=== PATIENT | female | born 1975 | race Two or more races ===

== ENCOUNTER 2017-06-21 20:02 | Inpatient (IN) | payer MEDICARE, OTHER ==
[~2017-06-21] VITALS: Ht 160 cm; Wt 151.9 kg
[~2017-06-21 20:02] MED LIST: ADVAIR 100-501 EACH INH; ALBUTEROL2.5 MG/3 M INH; GLIPIZIDE XL10 MG PO; HYDROCHLOROTHIA25 MG PO; IPRAT-ALBUT 0.5-3 ML INH; METFORMIN HCL1000 MG PO; METFORMIN HCL500 MG PO; PAXIL20 MG PO; PROMETHAZINE HC25 M1 PO; SIMVASTATIN10 MG PO; SINGULAIR5 MG PO; SPIRIVA18 MCG INH; SUPRENZA ODT30 MG PO; VENTOLIN HFA18 GM INH
--- NOTE | 2017-06-22 00:10 | NUR ---
PT ARRIVES TO CCU ROOM 127 ADMITTED WITH SEVERE SEPSIS/PNEUMONIA. ON 4L/NC/O2 WITH SPO2 95%. RESP LABORED, PT DIAPHORETIC, C/O LEFT SIDED CHEST PAIN ASSOCIATED WITH COUGHING, WILL GIVEN PRN PAIN MED. TRANSFERRED OVER TO BED FROM [facility] WITH SLIDER. ALERT AND ORIENTED, DENIES NEEDS AT THIS TIME. WILL START LR BOLUSES ORDERED BY DR PAN. PT ALSO RECEIVED ABX DOSES IN THE ER.
--- NOTE | 2017-06-22 00:45 | NUR ---
BLUM CATHETER PLACED, DIFFICULT PLACEMENT DUE TO DIFFICULTY VISUALIZING MEATUS, REQUIRED THREE STAFF. RETURN OF 250ML DARK JENNIFER URINE, WILL START MONITORING URINE OUTPUT HOURLY. BLOOD SUGAR 347, 10 UNITS OF NOVOLOG GIVEN. WHEN TOLD WHAT HER BLOOD SUGAR WAS PT STATES "IS THAT GOOD OR BAD?", EDUCATION ON BLOOD SUGARS GIVEN BUT REINFORCEMENT NEEDED.
--- NOTE | 2017-06-22 02:00 | NUR ---
150ML URINE OUT SINCE BLUM PLACED ABOUT AN HOUR AND A HALF AGO, URINE DARK JENNIFER. WILL CONTINUE TO MONITOR. STILL RECEIVING LR BOLUSES. PT IN BED TRYING TO SLEEP.
--- NOTE | 2017-06-22 03:02 | NUR ---
URINE OUTPUT 34ML LAST HOUR, THIRD BOLUS OF LR STARTING TO INFUSE NOW, WILL CONTINUE TO MONITOR. PT AWAKE IN BED, STATES SHE IS COMFORTABLE NOW AND ONLY HAS PAIN WITH COUGHING. SITTING UP AWAKE TALKING WITH BROTHER AT BEDSIDE.
--- NOTE | 2017-06-22 04:05 | NUR ---
PT HAS BEEN TRYING TO SLEEP, HAS NOT BEEN HAVING ANY DROPS IN SPO2 BUT ASKS IF SHE CAN WEAR BIPAP "CAN I HAVE THAT MACHINE? EVERY TIME I START TO DRIFT OFF TO SLEEP I SHAKE AWAKE WITH FEELING LIKE I CANT BREATHE." RT NOTIFIED, WILL COME AND SET PT UP ON CPAP. URINE OUTPUT 36ML THIS HOUR, 3 OF 3 LR BOLUSES JUST FINISHED INFUSING.
--- NOTE | 2017-06-22 04:15 | NUR ---
DR PAN NOTIFIED OF LOW URINE OUTPUT, ORDER GIVEN FOR FOURTH LR BOLUS.
--- NOTE | 2017-06-22 04:49 | NUR ---
RT IN TO SET UP CPAP 30% OXYGEN.
--- NOTE | 2017-06-22 05:12 | NUR ---
URINE OUTPUT UP TO 70ML FOR THE LAST HOUR, LR BOLUS JUST COMPLETED AND URINE IS LOOKING LESS DARK. PT RESTING WITH CPAP ON, SPO2 98% AND RR DOWN TO 18.
--- NOTE | 2017-06-22 05:21 | NUR ---
LAB IN TO DRAW
--- NOTE | 2017-06-22 06:35 | NUR ---
PT WANTS BREAK FROM CPAP. HELPED TO POSITION UP IN BED, VERY LABORED RESP WITH EXERTION. REQUESTS NEB TX, RT NOTIFIED, SPO2 91% WHILE MOVING, UP TO 94% AFTER RECOVERING ABOUT TEN MINUTES, OXYGEN 3L/NC IN PLACE. URINE OUTPUT WAS DOWN TO 35 LAST HOUR, WILL NOTIFY DR PAN.
--- NOTE | 2017-06-22 06:42 | NUR ---
DR PAN NOTIFIED OF URINE OUTPUT 35ML LAST HOUR, PT HAS RECEIVED A TOTAL OF 5L IVF SINCE ARRIVAL TO HOSPITAL. ORDER GIVEN TO START LR AT 250ML/HR. RT IN TO START NEB TX PER PT REQUEST.
[2017-06-22] MEDS ORDERED: FLUTICASONE PRO16 GM NAS (08:20)
[2017-06-22] MEDS ORDERED: GLIPIZIDE XL5 MG PO (08:21)
[2017-06-22] MEDS ORDERED: MONTELUKAST SOD10 MG PO (08:21)
[2017-06-22] MEDS ORDERED: PAROXETINE HCL40 MG PO (08:22)
[2017-06-22] MEDS ORDERED: ATROVENT HFA12.9 GM INH (08:22)
[2017-06-22] MEDS ORDERED: ADVIL200 MG PO (10:12)
[2017-06-22] MEDS ORDERED: DAILY MULTIPLE1 EACH PO (10:13)
--- NOTE | 2017-06-22 10:14 | NUR ---
MED REC COMPLETE
--- NOTE | 2017-06-22 11:06 | NUR ---
PT CURRENTLY RESTING WITH EYES CLOSED, DOING WELL.
--- NOTE | 2017-06-22 14:39 | NUR ---
PT HAS BEEN SLEEPING AT THIS TIME, SHE CAN BE HEARD SNORNING FROM THE NURSES STATION. SHE HAS NOT FINISHED HER LUNCH. SHE HAD ORDERED A HAMBURGER AND HAS ONLY TAKEN A FEW BITES OF FOOD.
--- NOTE | 2017-06-22 15:53 | EKG ---
[facility] [address] [facility] [place] [address] Signed Normal sinus rhythm Left axis deviation Low voltage QRS Incomplete right bundle branch block Abnormal ECG No previous ECGs available Confirmed by ADIS PAN MD ([id number]) on 06/22/2017 3:53:15 PM Electronically Signed By: ADIS PAN MD 06/22/17 1553 PATIENT NAME: DANIA ALARCON Electrocardiogram DATE OF : 73 PHYSICIAN: ADIS PAN MD REPORT #: [id number] REPORT IS CONFIDENTIAL AND NOT TO BE RELEASED WITHOUT AUTHORIZATION
--- NOTE | 2017-06-22 16:00 | NUR ---
PT UP TO THE CHAIR AT HIS TIME, COMPLETE LINE CHANGED COMPLETED, AMEYA CARE AND IT APPEARS THAT PT STARTED HER MENSES TODAY. HAIR SHAPOOED AND COMBED OUT DUE TO A VERY LARGE TANGLED MESS IN THE BACK. PT VA WELL AND WAS TALKING ON THE PHONE WITH FAMILY DURING THIS TIME. PT TAKING IN PO WELL AT THIS TIME.
--- NOTE | 2017-06-22 17:49 | NUR ---
pt back to bed at this time, ambulated well.
--- NOTE | 2017-06-22 19:42 | NUR ---
PT HAD CPAP ON AND WAS DESATURATING TO 85%, RT CALLED TO ADD O2 BLEED IN TO CPAP. REPORT RECEIVED FROM GABRIEL MCKOY.
--- NOTE | 2017-06-22 19:56 | NUR ---
PT AWAKE IN BED DOING NEB TX. DENIES NEEDS OR PAIN AT THIS TIME.
--- NOTE | 2017-06-22 22:00 | NUR ---
PT GIVEN HS MEDS, STARTED ON LEVEMIR TONIGHT, EDUCATION GIVEN REGARDING INSULIN AND BLOOD SUGARS. CATH CARE/HS CARE DONE THEN PT PUTS CPAP BACK ON TO TRY TO SLEEP FOR THE NIGHT.
--- NOTE | 2017-06-22 22:57 | NUR ---
PT RESTING WITH CPAP ON RESP EVEN AND UNLABORED.
--- NOTE | 2017-06-22 23:39 | NUR ---
PT CALLS WITH SUDDEN C/O PAIN IN GROIN AREA, "ITS REALLY BAD, IT WOKE ME UP AND ITS GETTING WORSE, ITS LIKE I HAVE TO PEE BUT I CANT, ITS REALLY BURNING" CATHETER IS DRAINING WELL, NOT KINKED. CALLED DR PAN, ORDER GIVEN TO D/C BLUM. CATHETER DC/D WNL. PAIN REPORTS LESSENING OF PAIN SOON CATHETER IS OUT. WILL CONTINUE TO MONITOR.
--- NOTE | 2017-06-23 00:20 | NUR ---
PT REPORTS PAIN IS NOW GONE. ATTEMPTING TO GO BACK TO SLEEP WITH CPAP ON.
--- NOTE | 2017-06-23 02:00 | NUR ---
HAS BEEN RESTFUL, SLEEPING WELL, RR 20, HR 50'S
--- NOTE | 2017-06-23 04:45 | NUR ---
ASSESSMENT DONE, UNCHNAGED FROM PREVIOUS, BACK TO SLEEP WITH CPAP ON.
--- NOTE | 2017-06-23 06:18 | NUR ---
UP TO BR TO VOID 500ML THEN BACK TO BED. SOB WITH ACTIVITY, REQUETS BREATHING TX, NEB TX GIVNE BY RT, PT STATES SHE FEELS BETTER AFTER.
--- NOTE | 2017-06-23 09:03 | NUR ---
DM PRINTED EDUCATION GIVEN TO PT AND ENCOURAGED HER TO READ IT. LEFT MESSAGE WITH THE ASSOCIATE STORE DIRECTOR REGARDING PT. PT APPEARS TO BE OVERWHELMED WITH ALL THE EDUCATION REGARDING DM
--- NOTE | 2017-06-23 11:06 | NUR ---
PT CONTIOUES TO SLEEP THIS AM. PT WILL BE TRANSFERED TO THE M/S UNIT TODAY TO ROOM 112
--- NOTE | 2017-06-23 11:45 | NUR ---
REPORT CALLED TO VERNELL ALL QUESTIONS ANSWERED AT THIS TIME. ALL PT PERSOANL BELONGING CAP AND CASE, FLIP FLOPS, AND O2 CONESTERATOR SENT TO ROOM 112 WITH PT. PT UP TO THE CHAIR AND TRANSFERED TO ROOM 112.
--- NOTE | 2017-06-23 12:00 | NUR ---
PATIENT RECIEVING BREATHING TREATMENT, UP TO BATHROOM, NOTED PATIENT NEEDS 2L WHILE UP AMBULATING. CONTINUIOUS PULSE OX. PATIENT ORDERED LUNCH. FULL BODY ASSESMENT DONE. CALL LIGHT WITHIN REACH.
--- NOTE | 2017-06-23 13:59 | NUR ---
PT TRANSFERED FROM CCU SO LINENS ON BED WERE FRESH AND DID NOT NEED TO BE CHANGED. PT SHOWERED WITH MINIMAL ASSISTANCE. PT BRUSHED HER TEETH AFTER SHOWER. PT RETURNED TO CHAIR AND IS SITTING UP SAFELY WITH CALL LIGHT IN REACH
--- NOTE | 2017-06-23 16:54 | NUR ---
PATIENT UP AMBULATING WITH PHYSICAL THERAPY. REPORTED DESAT TO 85% ON RA, PHYSICAL THERAPY PUT PATIENT ON 2L WITH EXERTION. PATIENT APPEARED TO TOLERATE ACTIVITY WELL. DISCUSSED WITH RT ALVIN. PATIENT NOW REQUESTING TO HAVE CPAP MACHINE CLEANED, PLAN FOR RT TO COME TO FLOOR.
--- NOTE | 2017-06-23 19:20 | NUR ---
BEDSIDE REPORT RECEIVED FROM EAN MATT. PT LYING IN BED, TALKING ON PHONE. SPO2 93%, HR 80 AT THIS TIME. PT HAS CALL LIGHT IN REACH. BREATHING IS NON-LABORED AT THIS TIME.
--- NOTE | 2017-06-23 19:20 | NUR ---
ROUNDED CHARGE. PATIENT IS RESTINGIN BED WATCHING TV. PATIENT DENIES ANY NEEDS AT THIS TIME. NO COMMENTS, QUESTIONS, OR CONCERNS. CALL LIGHT IN REACH.
--- NOTE | 2017-06-23 19:40 | NUR ---
PATIENT WORKING WITH PHYSICAL THERAPY, SOME COMPLAINTS OF PAIN BEHIND EYES. ADMINISTERED ADVIL PRN. PATIENT STBY IN ROOM. NEEDS 2L OXYGEN WITH EXERTION. CONTINIOUS PULSE OX. VS STABLE. PATIENT SELF ADMINISTERED EVENING INSULIN, PROVIDED VERBAL TEACH BACK.
--- NOTE | 2017-06-23 20:30 | NUR ---
PT SLEEPING AT THIS TIME, HOME CPAP ON, SPO2 91%, PTS BREATHING IS NON LABORED. LIGHTS OFF IN ROOM.
--- NOTE | 2017-06-23 21:06 | NUR ---
VITALS AND I&OS DONE AND CHARTED. BEDSIDE TABLE AND CALL LIGHT WITHIN REACH.
--- NOTE | 2017-06-23 22:00 | NUR ---
PT ASSESSMENT COMPLETE AT THIS TIME, CBG 232, 8 UNITS NOVOLOG INSULIN ADMINISTERED. PT EDUCATED ON INSULIN ADMINISTRATION, ABLE TO PERFORM INJECTION. PTS LUNGS CLEAR, DIMINISHED, PT ON HOME CPAP AT THIS TIME, SPO2 91%. PT SKIN DRY, NYSTATIN APPLIED UNDER PANIS, NO REDNESS NOTED. CSM INTACT BILATERALLY UPPER AND LOWER EXTREMITIES, PT DENIES PAIN, DENIES NAUSEA. IV FLUSHES WELL, SITE WNL. IV ANTIBIOTIC INFUSING AT THIS TIME. CALL LIGHT IN REACH, LIGHTS OFF IN ROOM. PT HAS WATER AND PERSONAL BELONGINGS IN REACH.
--- NOTE | 2017-06-23 23:29 | NUR ---
IN PT ROOM, IV ANTIBIOTIC INFUSION COMPLETE. LINE SALINE LOCKED. PT ON CPAP, SPO2 95%. PT SLEEPING, AWAKENS TO RN VOICE. LIGHTS OFF IN ROOM, CALL LIGHT IN REACH.
--- NOTE | 2017-06-24 01:43 | NUR ---
PT LYING ON RIGHT SIDE, SPO2 94% ON HOME CPAP MACHINE, PT APPEARS COMFORTABLE, FAN ON IN ROOM, LIGHTS OFF. CALL LIGHT IN REACH.
--- NOTE | 2017-06-24 03:22 | NUR ---
IN PT ROOM, PT SPO2 95%, LYING ON LEFT SIDE, BREATHING IS NON-LABORED, SLEEPING, HR 65.
--- NOTE | 2017-06-24 04:50 | NUR ---
IN PTS ROOM FOR VITALS, SPO2 96% ON HOME CPAP WITH 2L OXYGEN. PTS LUNGS CLEAR, DIMINISHED THROUGHOUT ALL LOBES, HR REGULAR RHYTHM, BOWEL TONES ACTIVE, ABDOMEN NON-TENDER. PT IS ALERT AND ORIENTED UPON AWAKENING. EMPTIED PTS URINE HAT. PT DENIES PAIN. LIGHTS OFF IN ROOM. PT HAS NO REQUEST AT THIS TIME, CALL LIGHT IN REACH.
--- NOTE | 2017-06-24 06:38 | NUR ---
PT HAS SLEPT THROUGHOUT SHIFT. USING HOME CPAP WITH 2L O2, SATURATING WELL THORUGHOUT NIGHT. PT UP TO RESTROOM FOR QUANITY SUFFICIENT VOIDS INDEPENDENTLY THORUGHOUT SHIFT. PT ABLE TO INJECT INSULIN WITH INSTRUCTION, CONTINUED EDUCATION PROVIDED.
--- NOTE | 2017-06-24 08:47 | NUR ---
PT IN BED AWAKE. AM CARE. LINEN CHANGE.
--- NOTE | 2017-06-24 10:00 | NUR ---
PATIENT SELF ADMINISTERED INSULIN, TOLERATED WELL. FULL BODY ASSESMENT DONE. PATIENT NOW UP WITH PHYSICAL THERAPY.
--- NOTE | 2017-06-24 10:19 | NUR ---
VITALS DONE AND I AND O
[2017-06-24] MEDS ORDERED: BLOOD LANCETS1 EACH MISC (10:47)
[2017-06-24] MEDS ORDERED: BLOOD GLUCOSE1 EAC8 MISC (10:47)
[2017-06-24] MEDS ORDERED: BLOOD GLUCOSE1 EAC1 MISC (10:47)
[2017-06-24] MEDS ORDERED: LANTUS100 UNITS/ SUB-Q (10:47)
[2017-06-24] MEDS ORDERED: LEVOFLOXACIN500 MG PO (10:47)
[2017-06-24] MEDS ORDERED: NOVOLOG100 UNIT/2 SUB-Q (10:47)
[2017-06-24] MEDS ORDERED: INSULIN SYRING MISC (10:47)
--- NOTE | 2017-06-24 12:27 | NUR ---
SET PT UP FOR LUNCH.
--- NOTE | 2017-06-24 13:16 | NUR ---
PROVIDED PT TEACHING ON TRACKING AND RECORDING BLOOD SUGARS ON WEEKLY LOG. PT VERBALIZED UNDERSTANDING AND PROVIDED TEACH BACK. GAVE PT ADDITIONAL RESOURCES FOR ASSISTANCE WITH DM EDUCATION.
--- NOTE | 2017-06-24 15:00 | NUR ---
PATIENT NOT ABLE TO PULL INSULIN INTO SYRINGE, REPORTS UNABLE TO SEE NUMBERS. PATIENT STATED " I AM NOT ABLE TO AFFORD NEW GLASSES." TALKED WITH DR. PAN PLAN TO GET PATIENT SOME READING GLASSES TO SEE IF HELPS PATIENT WITH SELF ADMINISTERING INSULIN.
--- NOTE | 2017-06-24 17:51 | NUR ---
EDUCATION GIVEN TO PT RE: BLOOD SUGAR CHECKS PRIOR TO MEAL. RN HAD PT EXPLAIN THE PROCESS OF CHECKING HER BLOOD SUGAR PRIOR TO STARTING. RN SET UP GLUCOMETER FOR PT. PT THEN CHECKED HER OWN BLOOD SUGAR. PT DID NOT REQUIRE ADDITIONAL CUING TO PREFORM TASK, BUT DID NEED ENCOURAGEMENT. RN GAVE POINTERS ON WAYS TO MAKE THE PROCESS FASTER AND SMOOTHER. PT COMPLETED BLOOD SUGAR LOG INDEPENDENTLY.
--- NOTE | 2017-06-24 18:30 | NUR ---
PATIENT CONTINUES TO WORK ON SELF ADMINISTERING INSULIN, APPEARS INSTERESTED IN PROCESS AND CAN VERBALIZE UNDERSTANDING AND DEMONSTRATE TAKING BLOOD SUGAR AND ADMINISTERING INSULIN TO SELF. HOWEVER HAS TROUBLE WITH READING SYRINGE. PLAN TO PROVIDE PATIENT WITH READING GLASSES. PATIENT STATES " I AM WORRIED ABOUT FOODS MY MOM BUYS FOR THE HOUSE" MADE COPY OF THE HOSPITAL MENU TO SHOW HER MOM SO SHE CAN CONTINUE TO EAT SOME OF THE SAME FOODS THE HOSPITAL HAS BEEN PROVIDING FOR HER. PATIENT LUNG SOUNDS DIMINISHED IN BASES AND HAS PRODUCTIVE COUGH, FLEM NOW TANNISH. PATIENT VS STABLE. UP AMBULATING IN HALLS, NO OXYGEN NEEDED, SATUATIONS 90% RA. CONTINUES TO USE PULSE OX. PLAN TO DISCHARGE TOMORROW.
--- NOTE | 2017-06-24 19:03 | NUR ---
PT IN BED SLEEPING. FRESH ICE WATER.
--- NOTE | 2017-06-24 19:15 | NUR ---
BEDSIDE REPORT RECEIVED FROM EAN MATT. PT SLEEPING AT THIS TIME, CPAP ON, SPO2 93%. PLAN TO CONTINUE TO HAVE PT SELF ADMINISTER INSULIN THIS EVENING. IV SALINE LOCKED. CALL LIGHT IN REACH.
--- NOTE | 2017-06-24 21:45 | NUR ---
PT ASSESSMENT COMPLETE AT THIS TIME, EXPIRATORY WHEEZES HEARD THROUGHOUT LUNG LOBES, PT DENIES SOB. PT DENIES ANY PAIN AT THIS TIME. PT SELF ADMINISTERED LEVIMIR, AND NOVOLOG 4 UNITS IN ABDOMEN. PT ALSO ABLE TO PERFORM ACCU CHECK. HR REGULAR RHYTHM. BOWEL TONES ACTIVE. PT DENIES NAUSEA. PT GIVEN ICE WATER, NYSTATIN POWDER APPLIED TO AMEYA AREA, NO REDNESS NOTED. CALL LIGHT IN REACH. CPAP ON AT THIS TIME PT GOING TO BED.
--- NOTE | 2017-06-25 00:11 | NUR ---
VITALS AND I &OS DONE AND CHARTED. PT WANTED THE FAN ON SO I TURNED ON FOR HER. BEDSIDE TABLE AND CALL LIGHT WITHIN REACH. SHE NEEDED NOTHING ELSE AT THAT TIME.
--- NOTE | 2017-06-25 00:25 | NUR ---
PT SLEEPING, EYES CLOSED, SPO2 93%, HR 52.
--- NOTE | 2017-06-25 03:36 | NUR ---
PT ASSESSMENT COMPLETE AT THIS TIME, PT SLEEPING,AWAKENS TO RN VOICE. EMPTIED URINE HAT, 650 ML URINE. PTS LUNGS CLEAR, DIMINISHED THROUGHOUT ALL LOBES, BOWEL TONES ACTIVE, HR REGULAR RHYTHM. CSM INTACT BILATERALLY UPPER AND LOWER EXTREMITIES. SPO2 96% ON HOME CPAP MACHINE WITH 2L. PT DENIES PAIN, DENIES ADDITIONAL NEEDS AT THIS TIME, LIGHTS OFF IN ROOM.
--- NOTE | 2017-06-25 05:48 | NUR ---
ANSWERED CALL LIGHT, PT REQUESTING PRN BREATHING TREATMENT, RT CONNIE NOTIFIED AND WILL BE COMING TO ADMINISTER. PT UPDATED. URINE HAT EMPTIED, PT HAD LARGE BM. PT GIVEN ICE WATER, CALL LIGHT IN REACH.
--- NOTE | 2017-06-25 07:02 | NUR ---
PT SLEEPING THROUGHOUT SHIFT, CPAP ON WITH 2L OXYGEN WHILE SLEEPING, SATURATING WELL. PT ON ROOM AIR WHILE AWAKE. PT UP TO RESTROOM INDEPENDENTLY FOR VOIDS. PT INJECTING OWN INSULIN, COMPLETING ACCUCHECKS WITH DIRECTION. PT ABLE TO USE SLIDING SCALE APPROPRIATELY FOR DOSING.
--- NOTE | 2017-06-25 07:58 | NUR ---
RN IN ROOM TALKING TO PATIENT. WHITEBOARD UPDATED.
--- NOTE | 2017-06-25 09:00 | NUR ---
PROVIDED PATIENT WITH READING GLASSES SO SHE COULD SEE THE SYRINGE TO DRAW UP INSULIN. PATIENT ABLE TO DEMONSTRATE PULLING INSUIN INTO SYRINE, AND DISCUSS HOW TO DO IT. SELF ADMINISTERS INSULIN WELL, AND DEMONSTRATES UNDERSTANDING OF PROCESS. ABLE TO RECORD BLOOD SUGARS, AND READ THE SLINDING SCALE WELL. PLAN TO DISCHARGE TODAY.
[2017-06-25] MEDS ORDERED: BLOOD GLUCOSE1 EAC8 MISC (09:07)
[2017-06-25] MEDS ORDERED: BLOOD GLUCOSE1 EAC1 MISC (09:08)
[2017-06-25] MEDS ORDERED: BLOOD LANCETS1 EACH MISC (09:08)
--- NOTE | 2017-06-25 10:47 | NUR ---
PATIENT UP AMBULATING WITH PHYSICAL THERAPY, OXYGEN SATURATIONS 90% RA. PLAN TO DISCHARGE HOME THIS AFTERNOON.
--- NOTE | 2017-06-25 16:30 | NUR ---
SHELDON ARRIVED FOR PATIENT. DISCUSSED IN GREAT DETAIL DIABETIC MEAL PLANNING AND INSULIN. CONTINUING BREATHING TREATMENTS AT HOME, AND ANTIBIOTICS. PATIENT VERBALIZED UNDERSTANDING OF SIDE EFFECTS. PATIENT STATES " I FEEL CONFIDENT PULLING THE INSULIN INTO THE SYRINGE, AND ADMINISTERING INSULIN, PER MY SLIDING SCALE". INSULIN PROVIDED TO PATIENT SECONDARY TO [facility] NOT HAVING ANY IN STOCK, AND INSULIN SUPPLIES AND NEW MEDICATIONS FAXED TO [facility]. ANSWERED ALL QUESTIONS AND CONCERNS.
== END 2017-06-25 16:55 | disposition home or self-care (01) | DRG 871 ==
LOC: ED 20:02 → CCU 23:36 → MS 06-23 11:45
PROVIDERS: ADMIT Internal Medicine
DX: A41.9 Sepsis, unspecified organism (principal); J13 Pneumonia due to Streptococcus pneumoniae; J96.01 Acute respiratory failure with hypoxia; Z68.44 Body mass index [BMI] 60.0-69.9, adult; R65.20 Severe sepsis without septic shock; E11.65 Type 2 diabetes mellitus with hyperglycemia; I10 Essential (primary) hypertension; F32.9 Major depressive disorder, single episode, unspecified; E66.01 Morbid (severe) obesity due to excess calories; Z79.4 Long term (current) use of insulin; Z87.891 Personal history of nicotine dependence
CPT/HCPCS: 36415; 51703; 71045; 71260; 80053; 83036; 83605; 83735; 84484; 85025; 87040; 87070; 87205; 87449; 87502; 87899; 93005; 93010; 94640; 94660; 94668; 94762; 97110; 97116; 97161; 97162; J0696; J1650; J1885; J1956; J2405; J2930; J7030; J7120; Q9967

== ENCOUNTER 2019-12-06 12:36 | Inpatient (IN) | payer MEDICARE, OTHER ==
[~2019-12-06] VITALS: Ht 160 cm; Wt 112.0 kg
[~2019-12-06 12:36] MED LIST changes: +ADVIL200 MG PO; +ATROVENT HFA12.9 GM INH; +BLOOD GLUCOSE1 EAC1 MISC; +BLOOD GLUCOSE1 EAC8 MISC; +BLOOD LANCETS1 EACH MISC; +DAILY MULTIPLE1 EACH PO; +FLUTICASONE PRO16 GM NAS; +GLIPIZIDE XL5 MG PO; +INSULIN SYRING MISC; +LANTUS100 UNITS/ SUB-Q; +LEVOFLOXACIN500 MG PO; +MONTELUKAST SOD10 MG PO; +NOVOLOG100 UNIT/2 SUB-Q; +PAROXETINE HCL40 MG PO
[2019-12-06] MEDS ORDERED: LISINOPRIL5 MG PO (13:04)
[2019-12-06] MEDS ORDERED: BREO ELLIPTA 21 EACH INH (13:05)
[2019-12-06] MEDS ORDERED: SIMVASTATIN20 MG PO (13:05)
[2019-12-12] MEDS ORDERED: DOXYCYCLINE HY100 MG PO (11:03)
== END 2019-12-12 12:25 | disposition home or self-care (01) | DRG 603 ==
LOC: ED 12:36 → MS 15:50
PROVIDERS: ADMIT Internal Medicine; ATTEND Internal Medicine
DX: L03.115 Cellulitis of right lower limb (principal); E87.1 Hypo-osmolality and hyponatremia; Z68.41 Body mass index [BMI] 40.0-44.9, adult; Z20.828 Contact with and (suspected) exposure to other viral communicable diseases; E86.0 Dehydration; I10 Essential (primary) hypertension; E11.9 Type 2 diabetes mellitus without complications; E78.5 Hyperlipidemia, unspecified; F39 Unspecified mood [affective] disorder; E66.01 Morbid (severe) obesity due to excess calories; J45.40 Moderate persistent asthma, uncomplicated; E87.6 Hypokalemia; T50.2X5A Adverse effect of carbonic-anhydrase inhibitors, benzothiadiazides and other diuretics, initial encounter; E80.6 Other disorders of bilirubin metabolism; R74.8 Abnormal levels of other serum enzymes; Z88.8 Allergy status to other drugs, medicaments and biological substances; Z79.84 Long term (current) use of oral hypoglycemic drugs; Z79.1 Long term (current) use of non-steroidal anti-inflammatories (NSAID); Z79.51 Long term (current) use of inhaled steroids; Z79.899 Other long term (current) drug therapy
CPT/HCPCS: 36415; 80048; 80053; 80076; 80202; 83036; 83605; 83735; 85025; 86060; 87040; 93971; 94640; 96361; 96374; 99284-25; C9803; J0696; J1100; J1650; J1885; J2001; J2250; J2274; J2405; J2704; J2765; J3010; J3370; J3475; J7060; J7121; U0002

== ENCOUNTER 2022-02-15 16:56 | Emergency (ER) | payer MEDICARE, OTHER ==
[~2022-02-15] VITALS: Ht 160 cm; Wt 152.2 kg
[~2022-02-15 16:56] MED LIST changes: +BREO ELLIPTA 21 EACH INH; +DOXYCYCLINE HY100 MG PO; +LISINOPRIL5 MG PO; +SIMVASTATIN20 MG PO
[2022-02-15] MEDS ORDERED: PROTONIX20 MG PO (18:16)
[2022-02-15] MEDS ORDERED: BUSPIRONE HCL7.5 MG PO (18:16)
[2022-02-15] MEDS ORDERED: VARENICLINE TART1 MG PO (18:17)
[2022-02-15] MEDS ORDERED: GLUCOTROL XL5 MG PO (18:17)
[2022-02-15] MEDS ORDERED: SPIRIVA18 MCG INH (18:18)
[2022-02-15] MEDS ORDERED: HYDROXYZINE HCL25 MG PO (18:19)
[2022-02-15] MEDS ORDERED: POTASSIUM CHLO20 ME2 PO (21:57)
[2022-02-15] MEDS ORDERED: LASIX40 MG PO (21:57)
--- NOTE | 2022-02-17 19:49 | EKG ---
[facility] [address] [facility] [place] [address] Signed Normal sinus rhythm Low voltage QRS Inferior infarct , age undetermined Possible Anterolateral infarct , age undetermined Abnormal ECG When compared with ECG of 21-JUN-2017 20:17, Incomplete right bundle branch block is no longer present Borderline criteria for Anterior infarct are now present Borderline criteria for Anterolateral infarct are now present Confirmed by Jeimy Block MD () on 02/17/2022 7:49:41 PM Electronically Signed By: JEIMY BLOCK MD 02/17/221948 PATIENT NAME: DANIA ALARCON Electrocardiogram DATE OF : 73 PHYSICIAN: JEIMY BLOKC MD REPORT #: [id number] REPORT IS CONFIDENTIAL AND NOT TO BE RELEASED WITHOUT AUTHORIZATION
== END 2022-02-15 22:22 | disposition home or self-care (01) ==
LOC: ED 16:56
DX: I50.9 Heart failure, unspecified (principal); J45.909 Unspecified asthma, uncomplicated; E78.00 Pure hypercholesterolemia, unspecified; E11.9 Type 2 diabetes mellitus without complications; Z88.6 Allergy status to analgesic agent; Z79.899 Other long term (current) drug therapy; Z79.84 Long term (current) use of oral hypoglycemic drugs
CPT/HCPCS: 36415; 71045; 80053; 83036; 83735; 83880; 84484; 85025; 93005; 93010; 96374; 99285-25; J1940

== ENCOUNTER 2022-08-11 15:59 | Emergency (ER) | payer MEDICARE, OTHER ==
[~2022-08-11] VITALS: Ht 160 cm; Wt 145.2 kg
[~2022-08-11 15:59] MED LIST changes: +BUSPIRONE HCL7.5 MG PO; +GLUCOTROL XL5 MG PO; +HYDROXYZINE HCL25 MG PO; +IBUPROFEN600 MG PO; +JARDIANCE10 MG PO; +LASIX40 MG PO; +POTASSIUM CHLO20 ME2 PO; +PROTONIX20 MG PO; +VARENICLINE TART1 MG PO
--- OUTSIDE RECORDS SUMMARY | 2022-08-11 16:02 | XMS ---
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 - Patient with suicidal and/or homicidal ideations eloped. - Patient eloped with IV in place. Details: Patient LWOB. [facility] There are no care providers on record at this time. Imtiaz has no Care Guidelines for this patient. E.D. VISIT COUNT (12 MO.) 3 [facility]. TOTAL 3 NOTE: Visits indicate total known visits. ED/C VISIT TRACKING (12 MO.) 08/11/2022 15:[address] [facility] [place] TYPE: Emergency COMPLAINT: - VOMITING 06/10/2022 16:[address] [facility] [place] TYPE: Emergency COMPLAINT: - R MIDDLE FINGER LACERATION 02/15/2022 16:57 [facility] [place] TYPE: Emergency COMPLAINT: - ABNORMAL LAB RESULTS DIAGNOSES: - Pure hypercholesterolemia, unspecified - Unspecified asthma, uncomplicated - long term acute care registered nurse (current) use of oral hypoglycemic drugs - Allergy status to analgesic agent - Shortness of breath - Other nursing home (current) drug therapy - Type 2 diabetes mellitus without complications - Heart failure, unspecified INPATIENT VISIT TRACKING (12 MO.) No inpatient visits to display in this time frame [email or web address]
[2022-08-11] MEDS ORDERED: ONDANSETRON ODT4 MG PO (18:58)
== END 2022-08-11 19:23 | disposition home or self-care (01) ==
LOC: ED 15:59
DX: R10.84 Generalized abdominal pain (principal); R19.7 Diarrhea, unspecified; R11.10 Vomiting, unspecified; J45.909 Unspecified asthma, uncomplicated; E78.00 Pure hypercholesterolemia, unspecified; E11.9 Type 2 diabetes mellitus without complications; Z88.6 Allergy status to analgesic agent; Z79.899 Other long term (current) drug therapy; Z79.84 Long term (current) use of oral hypoglycemic drugs
CPT/HCPCS: 36415; 80053; 83690; 83735; 85025; 96365; 96375; 99284-25; A9270; J2405; J7040

== ENCOUNTER 2022-08-12 23:16 | Emergency (ER) | payer MEDICARE, OTHER ==
[~2022-08-12] VITALS: Ht 160 cm; Wt 145.4 kg
[~2022-08-12 23:16] MED LIST changes: +ONDANSETRON ODT4 MG PO
--- OUTSIDE RECORDS SUMMARY | 2022-08-12 23:21 | XMS ---
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 - Patient with suicidal and/or homicidal ideations eloped. - Patient eloped with IV in place. Details: Patient LWOB. CRITERIA MET - [facility] - 2 Visits in 30 Days [facility] There are no care providers on record at this time. Imtiaz has no Care Guidelines for this patient. EWiliam. VISIT COUNT (12 MO.) 4 [facility]. TOTAL 4 NOTE: Visits indicate total known visits. 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
[2022-08-13] MEDS ORDERED: ELIQUIS5 M1 PO (02:23)
[2022-08-13] MEDS ORDERED: ONDANSETRON ODT4 MG PO (02:24)
--- NOTE | 2022-08-16 18:57 | EKG ---
[facility] [address] [place] [address] Signed Normal sinus rhythm Pulmonary disease pattern Right bundle branch block Left anterior fascicular block Bifascicular block Abnormal ECG When compared with ECG of 16-MAY-2022 10:58, Right bundle branch block has replaced Incomplete right bundle branch block Borderline criteria for Anterior infarct are no longer present Borderline criteria for Anterolateral infarct are no longer present Confirmed by Jeimy Block MD () on 08/16/2022 6:57:24 PM Electronically Signed By: JEIMY BLOCK MD 08/16/221856 PATIENT NAME: DANIA ALARCON Electrocardiogram DATE OF : 73 PHYSICIAN: JEIMY BLOCK MD REPORT #: [id number] REPORT IS CONFIDENTIAL AND NOT TO BE RELEASED WITHOUT AUTHORIZATION
== END 2022-08-13 02:45 | disposition home or self-care (01) ==
LOC: ED 23:16
DX: R11.2 Nausea with vomiting, unspecified (principal); I26.99 Other pulmonary embolism without acute cor pulmonale; Z20.822 Contact with and (suspected) exposure to COVID-19; J45.909 Unspecified asthma, uncomplicated; E78.00 Pure hypercholesterolemia, unspecified; E11.9 Type 2 diabetes mellitus without complications; Z88.6 Allergy status to analgesic agent; Z79.899 Other long term (current) drug therapy; Z79.84 Long term (current) use of oral hypoglycemic drugs
CPT/HCPCS: 36415; 71045; 71260; 74177; 80053; 81001; 83690; 83735; 83880; 84484; 85025; 85379; 87502; 93005; 93010; 94640; 96361; 96375; 99284-25; A9270; C9803; J1790; J2405; J3010; J7121; Q9967; U0003

== ENCOUNTER 2023-02-25 01:07 | Emergency (ER) | payer MEDICARE, OTHER ==
[~2023-02-25] VITALS: Ht 160 cm; Wt 135.6 kg
--- OUTSIDE RECORDS SUMMARY | ~2023-02-25 | XMS | Continuity of Care Document ---
Demographics + + + | Address | [address] | | | [place] [address] | + + + | Preferred Language | Unknown | + + + | Marital Status | | + + + | Muslim Affiliation | Unknown | + + + | Race | White | + + + | Ethnic Group | Not or | + + + Author + + + | Author | [place] | + + + | Organization | [facility] | + + + | Address | [address] | | | [place], [place] [address] | + + + | Phone | | + + + Care Team Providers + + + + | Care Assembly Department Supervisor Name | Role | Phone | + + + + Unavailable | Unavailable | + + + + Allergies No information. Encounters No information. Functional Status No information. Immunizations No information. Medications No information. Problems + + + + | date | description | facility | + + + + | 2022-11-28 13:35 | [facility] NEOPLASM [facility] | [facility] | | | ENDOMETRIUM | | + + + + | 2022-11-28 13:35 | Malignant neoplasm of | [facility] | | | uterus, part unspecified | | + + + + | 2022-11-28 13:35 | OTHER PULMONARY EMBOLISM | [facility] | | | WITHOUT ACUTE COR PULMONA | | + + + + | 2022-12-08 09:53 | MALIGNANT NEOPLASM OF | [facility] | | | ENDOMETRIUM | | + + + + | 2022-12-08 09:53 | OTHER PULMONARY EMBOLISM | [facility] | | | WITHOUT ACUTE COR PULMONA | | + + + + | 2022-12-08 09:53 | ENCOUNTER FOR | [facility] | | | ANTINEOPLASTIC CHEMOTHERAPY | | | | | | + + + + | 2023-01-12 13:12 | [facility]NANT NEOPLASM OF | [facility] | | | ENDOMETRIUM | | + + + + | 2023-02-07 08:53 | Malignant neoplasm of | [facility] | | | uterus, part unspecified | | + + + + | 2023-02-07 08:53 | ATHEROSCLEROSIS OF OTHER | [facility] | | | ARTERIES | | + + + + | 2023-02-07 08:53 | OTHER SPECIFIED DISORDERS | [facility] | | | OF ARTERIES AND ARTERIOL | | + + + + | 2023-02-07 09:00 | Malignant neoplasm of | [facility] | | | uterus, part unspecified | | + + + + Procedures No information. Results/Labs No information. Social History +--------+ + + | date | description | facility | +--------+ + + Vital Signs No information."
[~2023-02-25 01:07] MED LIST changes: +ACETAMINOPHEN500 MG PO; +ELIQUIS5 M1 PO; +HYDROCODON-ACE1 EA10 PO; +LOVENOX40 MG/0.4 SUB-Q
--- OUTSIDE RECORDS SUMMARY | 2023-02-25 01:10 | XMS ---
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 - Patient with suicidal and/or homicidal ideations eloped. - Patient eloped with IV in place. Details: Patient LWOB. [facility] There are no care providers on record at this time. Imtiaz has no Care Guidelines for this patient. E.D. VISIT COUNT (12 MO.) 4 [facility]. TOTAL 4 NOTE: Visits indicate total known visits. 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 - Nausea with vomiting, unspecified - Other lobsterman (current) drug therapy - Other pulmonary embolism without acute cor pulmonale - Pure hypercholesterolemia, unspecified - Type 2 diabetes mellitus without complications - Unspecified asthma, uncomplicated 08/11/2022 15:59 [facility] [place] TYPE: Emergency COMPLAINT: - VOMITING DIAGNOSES: - Allergy status to analgesic agent - Diarrhea, unspecified - Generalized abdominal pain - exterminator helper (current) use of oral hypoglycemic drugs - Other lobsterman (current) drug therapy - Pure hypercholesterolemia, unspecified - Type 2 diabetes mellitus without complications - Unspecified asthma, uncomplicated - Vomiting, unspecified 06/10/2022 16:39 [facility] [place] TYPE: Emergency COMPLAINT: - R MIDDLE FINGER LACERATION INPATIENT VISIT TRACKING (12 MO.) No inpatient visits to display in this time frame [id number]
[2023-02-25] MEDS ORDERED: ONDANSETRON ODT8 MG PO (01:19)
[2023-02-25 01:35] LABS: BASOPHILS 0.6 % (0-2); EOSINOPHILS 0.1 % (0-6); HEMOGLOBIN 12.2 g/dL (12.0-18.0); LYMPHOCYTES 10.1 % (24-44); MCH 32.3 (27-36); MCHC 34.1 g/dl (30-36); MONOCYTES 3.7 % (0-12); NEUTROPHILS 85.5 % (39-80); PLATELET COUNT 200 K/uL (140-440); RBC 3.79 M/ul (4.3-5.7); RDW 19.1 (10.5-15.0)
[2023-02-25 03:05] LABS: ALBUMIN 3.6 g/dL (3.4-5.0); ALBUMIN/GLOBULIN RATIO 0.86 (1.1-2.4); ANION GAP 16.5 (7-21); BILIRUBIN, TOTAL 0.7 ng/dL (0.2-1.0); BUN/CREATININE RATIO 10.83 (6.0-28.6); CALCIUM 9.6 mg/dL (8.5-10.1); CREATININE, SERUM 1.2 mg/dL (0.55-1.02); POTASSIUM 3.5 mmol/L (3.5-5.1); PROTEIN, TOTAL 7.8 g/dL (6.4-8.2)
[2023-02-25] MEDS ORDERED: CARAFATE1 GM PO (04:02)
[2023-02-25] MEDS ORDERED: PROTONIX40 MG PO (04:02)
[2023-02-25] MEDS ORDERED: PROMETHAZINE HC25 M1 PO (04:02)
[2023-02-25 04:20] VITALS: BP 125/73
== END 2023-02-25 06:58 | disposition home or self-care (01) ==
LOC: ED 01:07
PROVIDERS: Family Medicine
DX: K29.70 Gastritis, unspecified, without bleeding (principal); E11.9 Type 2 diabetes mellitus without complications; Z88.0 Allergy status to penicillin; Z88.8 Allergy status to other drugs, medicaments and biological substances; Z79.01 Long term (current) use of anticoagulants; Z79.899 Other long term (current) drug therapy; Z79.84 Long term (current) use of oral hypoglycemic drugs
CPT/HCPCS: 36415; 74177; 80053; 83690; 85025; 96361; 96375; 99284-25; J1790; J2270; J7030

== ENCOUNTER 2023-09-06 11:00 | Emergency (ER) | payer MEDICARE, OTHER ==
[~2023-09-06] VITALS: Ht 160 cm; Wt 126.6 kg
[~2023-09-06 11:00] MED LIST changes: +BREO ELLIPTA 21 EACH IH; +CARAFATE1 GM PO; +FARXIGA5 MG PO; +ONDANSETRON ODT8 MG PO; +PROTONIX40 MG PO; +TORSEMIDE20 MG PO
--- OUTSIDE RECORDS SUMMARY | 2023-09-06 11:02 | XMS ---
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 - Patient eloped before treatment completed. - Patient with suicidal and/or homicidal ideations eloped. Details: Patient LWOB. CRITERIA MET - [facility] - 2 Visits in 30 Days CARE PROVIDERS There are no care providers on record at this time. Imtiaz has no Care Guidelines for this patient. E.Fifi. VISIT COUNT ([address] [facility] H. TOTAL 3 NOTE: Visits indicate total known visits. ED/UCC VISIT TRACKING (12 MO.) 09/06/2023 11:01 [facility] TYPE: Emergency COMPLAINT: - LEGS SWELLING/RED/PAIN 08/20/2023 09:48 [facility] [place] TYPE: Emergency COMPLAINT: - COLD SYMPTOM DIAGNOSES: - Allergy status to analgesic agent - Allergy status to other drugs, medicaments and biological substances - Allergy status to penicillin - Disorder of bilirubin metabolism, unspecified - intermediate manager (current) use of inhaled steroids - Nausea with vomiting, unspecified - Other usp (current) drug therapy - Pure hypercholesterolemia, unspecified - Type 2 diabetes mellitus without complications - Unspecified asthma, uncomplicated 02/25/2023 01:08 [facility] [place] TYPE: Emergency COMPLAINT: - ABD PAIN DIAGNOSES: - Allergy status to other drugs, medicaments and biological substances - Allergy status to penicillin - Gastritis, unspecified, without bleeding - FDC (current) use of anticoagulants - FDC (current) use of oral hypoglycemic drugs - Other intermediate manager (current) drug therapy - Type 2 diabetes mellitus without complications - Upper abdominal pain, unspecified INPATIENT VISIT TRACKING (12 MO.) No inpatient visits to display in this time frame [email or web address]
[2023-09-06] MEDS ORDERED: DOXYCYCLINE HY100 MG PO (12:47)
[2023-09-06 12:54] VITALS: BP 101/67
== END 2023-09-06 13:11 | disposition home or self-care (01) ==
LOC: ED 11:00
DX: I87.2 Venous insufficiency (chronic) (peripheral) (principal); L03.115 Cellulitis of right lower limb; L03.116 Cellulitis of left lower limb; Z87.2 Personal history of diseases of the skin and subcutaneous tissue; E11.65 Type 2 diabetes mellitus with hyperglycemia; J45.909 Unspecified asthma, uncomplicated; E78.00 Pure hypercholesterolemia, unspecified; Z79.84 Long term (current) use of oral hypoglycemic drugs; Z79.51 Long term (current) use of inhaled steroids; Z79.899 Other long term (current) drug therapy; Z88.0 Allergy status to penicillin; Z88.6 Allergy status to analgesic agent; Z88.8 Allergy status to other drugs, medicaments and biological substances
CPT/HCPCS: 99283

== ENCOUNTER 2024-02-29 11:18 | Emergency (ER) | payer MEDICARE, OTHER ==
[~2024-02-29] VITALS: Wt 129.9 kg
[~2024-02-29 11:18] MED LIST changes: +propofoL 100 ML IV SCH
[2024-02-29 11:36] LABS: HEMATOCRIT 41.3 % (35.0-50.0); MCH 29.4 (27-36); MCHC 33.8 g/dl (30-36); MCV 86.9 fl (81-99); PLATELET COUNT 230 K/uL (140-440); RBC 4.76 M/ul (4.3-5.7); RDW 14.5 (10.5-15.0)
[2024-02-29] MEDS ORDERED: ALBUTEROL/IPRATROPIUM 3 ML NEB ONE (11:36)
[2024-02-29 11:41] LABS: PH, VENOUS 7.309 (7.31-7.41)
[2024-02-29 11:45] LABS: INR 1.19 (0.80-1.30); PARTIAL THROMBOPLASTIN TIME 29.1 Sec (22.9-41.3); PROTIME 14.4 Sec (11.2-14.2)
[2024-02-29] MEDS ORDERED: KETAMINE in NS 50 MG/5 ML SYR IV ONE ×3 (11:45→13:30)
[2024-02-29] MEDS ORDERED: ALBUTEROL/IPRATROPIUM 3 ML NEB INH ONE (11:45)
[2024-02-29] MEDS ORDERED: MIDAZOLAM HCL 2 MG/2 ML VIAL IV ONE (11:45)
[2024-02-29] MEDS ORDERED: VANCOMYCIN HCL/D5W 1 GM/270 ML PIGGYBACK KIT IV ONE (11:45)
[2024-02-29] MEDS ORDERED: CEFEPIME HCL/D5W 2 GM/100 ML PIGGYBACK IV ONE (11:45)
[2024-02-29] MEDS ORDERED: SODIUM CHLORIDE 0.9% 1,000 ML IV PRN (11:45)
[2024-02-29 11:55] LABS: BANDS, MANUAL DIFF 8; LYMPHOCYTES, MANUAL DIFF 17; MONOCYTES, MANUAL DIFF 7; NEUTROPHILS, MANUAL DIFF 68
[2024-02-29 12:00] LABS: ALBUMIN 3.4 g/dL (3.4-5.0); ALBUMIN/GLOBULIN RATIO 0.92 (1.1-2.4); ANION GAP 17.9 (7-21); BILIRUBIN, TOTAL 1.3 ng/dL (0.2-1.0); BUN/CREATININE RATIO 9.05 (6.0-28.6); CALCIUM 9.6 mg/dL (8.5-10.1); CREATININE, SERUM 2.32 mg/dL (0.55-1.02); POTASSIUM 2.9 mmol/L (3.5-5.1); PROTEIN, TOTAL 7.1 g/dL (6.4-8.2)
[2024-02-29] MEDS ORDERED: KETAMINE in NS 50 MG/5 ML SYR ONE (12:05)
[2024-02-29 12:07] LABS: MAGNESIUM 0.9 mg/dL (1.8-2.4)
[2024-02-29 12:14] LABS: BILIRUBIN, URINE POSITIVE (negative); BLOOD/HGB, URINE NEGATIVE (Negative); KETONE, URINE TRACE (Negative); LEUK ESTERASE, URINE NEGATIVE (negative); NITRITE, URINE NEGATIVE (negative)
[2024-02-29 12:21] LABS: BACTERIA, URINE 1+ /hpf (negative); CRYSTALS, URINE NONE SEEN (0-1+); EPITHELIAL CELLS, URINE SQUAMOUS 4+ /lpf (0-1+)
[2024-02-29 12:22] LABS: CASTS, URINE NONE SEEN \\lpf; COLLECTION TYPE, URINE CLEAN CATCH; REFLEX CULTURE, URINE No (No)
[2024-02-29] MEDS ORDERED: MAGNESIUM SULFATE 2 GM/50 ML BAG IV ONE (12:30)
[2024-02-29 12:36] LABS: AMPHETAMINES, URINE NEGATIVE (NEGATIVE); BARBITURATES, URINE NEGATIVE (NEGATIVE); BENZODIAZEPINE, URINE NEGATIVE (NEGATIVE); BUPRENORPHINE, URINE NEGATIVE (NEGATIVE); CANNABINOID, URINE POSITIVE (NEGATIVE); COCAINE, URINE NEGATIVE (NEGATIVE); ECSTASY, URINE NEGATIVE (NEGATIVE); FENTANYL, URINE NEGATIVE (NEGATIVE); METHADONE, URINE NEGATIVE (NEGATIVE); OPIATES, URINE NEGATIVE (NEGATIVE); OXYCODONE, URINE NEGATIVE (NEGATIVE); PHENCYCLIDINE, URINE NEGATIVE (NEGATIVE)
[2024-02-29] MEDS ORDERED: ACETAMINOPHEN 1,000 MG/100 ML VIAL IV ONE (12:45)
[2024-02-29] MEDS ORDERED: EPINEPHrine HCL 4 MG in DEXTROSE 5% 250 ML IV SCH (13:15)
[2024-02-29 13:32] LABS: HCO3, BLOOD GAS 22.1 mmol/L (22-26); O2 SATURATION, BLOOD GAS 97.4 % (95.0-100.0); PCO2, BLOOD GAS 63.7 mmHg (35-45); PH, BLOOD GAS 7.16 (7.35-7.45); PO2, BLOOD GAS 116 mmHg (80-100); TOTAL CO2, BLOOD GAS 23.9
[2024-02-29 13:34] LABS: OXYGEN RECEIVED, BLOOD GAS 60%
[2024-02-29] MEDS ORDERED: SODIUM CHLORIDE 0.9% 3,900 ML IV PRN (13:45)
[2024-02-29 13:52] LABS: INFLUENZA B NAA NEGATIVE (NEGATIVE); RESPIRATORY SYNCYTIAL VIR NAA NEGATIVE (NEGATIVE)
[2024-02-29] MEDS ORDERED: KETAMINE HCL IN NACL, ISO-OSM 100 ML IV ONE (13:53)
[2024-02-29 13:56] LABS: LACTIC ACID, BLOOD 4.4 mmol/L (0.4-2.0)
[2024-02-29] MEDS ORDERED: MORPHINE SULFATE 4 MG/ML VIAL ONE ×3 (14:53→15:25)
[2024-02-29] MEDS ORDERED: fentaNYL citrate 100 MCG/2 ML VIAL ONE ×2 (14:56→15:32)
[2024-02-29] MEDS ORDERED: MORPHINE SULFATE 4 MG/ML VIAL IV ONE ×3 (15:15→15:30)
[2024-02-29] MEDS ORDERED: fentaNYL citrate 100 MCG/2 ML VIAL IV ONE (15:15)
[2024-02-29] MEDS ORDERED: KETAMINE HCL IN NACL, ISO-OSM 100 ML IV SCH (15:30)
[2024-02-29] MEDS ORDERED: fentaNYL citrate 100 MCG/2 ML VIAL IV PRN ×2 (15:45)
[2024-02-29 17:54] VITALS: BP 00/00
--- NOTE | 2024-03-01 11:59 | EKG ---
[facility] [address] [place], [place] [address] Signed Sinus tachycardia Right superior axis deviation Incomplete right bundle branch block Possible Right ventricular hypertrophy Inferior infarct , age undetermined Abnormal ECG No previous ECGs available Confirmed by Sim Palacios MD ([id number]) on 03/01/2024 11:59:09 AM Electronically Signed By: SIM PALACIOS DO 03/01/24 1159 PATIENT NAME: DANIA ALARCON JORDANANIYA Electrocardiogram DATE OF : 73 PHYSICIAN: SIM PALACIOS DO REPORT #: [id number] REPORT IS CONFIDENTIAL AND NOT TO BE RELEASED WITHOUT AUTHORIZATION
== END 2024-02-29 17:54 ==
LOC: ED 11:18 → EDBD 11:19 → ED 11:19
PROVIDERS: Emergency Medicine
DX: A41.9 Sepsis, unspecified organism (principal); I26.99 Other pulmonary embolism without acute cor pulmonale; C55 Malignant neoplasm of uterus, part unspecified; C78.02 Secondary malignant neoplasm of left lung
CPT/HCPCS: 31500; 36415; 36600; 51702; 70450; 71045; 71260; 72125; 80053; 80307; 81001; 82140; 82803; 83605; 83735; 84484; 85025; 85610; 85730; 87040; 87502; 93005; 93010; 94640; 96368; 99291; G0480; J0131; J0171; J0692; J2250; J2270; J3010; J3370; J3475; J3490; J7030; J7060; Q9967; U0002